=== PATIENT | male | born 1970 | race Hispanic/Latino ===

== ENCOUNTER 2021-01-25 | Emergency (ER) | payer SELFPAY ==
[~2021-01-25] MED LIST: NO HOME MEDS
[2021-01-25] MEDS ORDERED: [UNRECOGNIZED DRUG - CODE] PO (05:41)
[2021-01-25 05:52] LABS: IMMATURE GRANULOCYTES 0.6 % (0.0-5.0); MEAN CORPUSCULAR HGB CONC 25.7 g/dL CAL (32.0-36.0); NEUT# 4.56 thou/uL (1.82-7.42); RED BLOOD COUNT 2.59 mill/uL (4.70-6.10); RED CELL DISTRI WIDTH 21.2 % (11.5-15.5)
[2021-01-25 06:02] LABS: HEMATOCRIT 17.1 % (39.0-50.0); HEMOGLOBIN 4.4 g/dl (14.0-18.0)
[2021-01-25 06:11] LABS: ALKALINE PHOSPHATASE 71 u/l (38-126); AMYLASE 85 u/l (30-110); BILIRUBIN, TOTAL 0.7 mg/dL (0.0-1.4); CARBON DIOXIDE 22 mmol/l (22-30); CHLORIDE 104 mmol/l (95-108); CREATININE 0.9 mg/dL (0.7-1.3); GFR > 60 ML/MIN (>=60 (CALC)); GFR FOR AFR.AMER. > 60 ML/MIN (>=60 (CALC)); LIPASE 211 u/l (23-300); SGOT/AST 34 u/l (17-59); SODIUM 135 mmol/l (137-146)
[2021-01-25 06:14] LABS: ACT PARTIAL THROMBO TIME 19.4 SECONDS (20.0-32.5); ANION GAP 13 (6-22 (CALC)); BUN 36 mg/dL (9-20); BUN/CREATININE RATIO 40 (12-20 (CALC)); INTERNATIONAL NORMALIZED RATIO 1.3 RATIO (0.7-1.3); POTASSIUM 4.4 mmol/l (3.5-5.1); PROTHROMBIN TIME 13.4 SECONDS (9.0-12.5); TOTAL PROTEIN 5.5 g/dL (6.3-8.2)
[2021-01-25 06:21] LABS: HEMOGLOBIN 4.2 g/dl (14.0-18.0)
[2021-01-25 06:22] LABS: MYOGLOBIN 70 ng/mL (0 - 121)
[2021-01-25 06:41] VITALS: BP 79/39
[2021-01-25 06:45] VITALS: BP 88/44
[2021-01-25 07:06] VITALS: BP 82/36
== END 2021-01-25 07:12 | disposition short-term general hospital (02) | DRG 379 ==
PROVIDERS: Family Medicine
PROC: 30233N1 Transfusion of Nonautologous Red Blood Cells into Peripheral Vein, Percutaneous Approach (ICD-10-PCS; principal; 2021-01-25)
PROC: 30233N1 Transfusion of Nonautologous Red Blood Cells into Peripheral Vein, Percutaneous Approach (ICD-10-PCS; 2021-01-25)
DX: K92.0 Hematemesis (principal); T39.395A Adverse effect of other nonsteroidal anti-inflammatory drugs [NSAID], initial encounter; D64.9 Anemia, unspecified
CPT/HCPCS: P9016; S0164